=== PATIENT | female | born 1950 | race Hispanic/Latino ===

== ENCOUNTER → 2017-09-07 | Outpatient (CLI) | payer OTHER | END | disposition home or self-care (01) | LOC: RAH 10:15 | PROVIDERS: ATTEND Family Medicine | DX: Z12.31 Encounter for screening mammogram for malignant neoplasm of breast (principal) | CPT/HCPCS: 77067 ==

== ENCOUNTER → 2018-03-28 | Outpatient (CLI) | payer OTHER | END | disposition home or self-care (01) | LOC: OIH 15:22 | PROVIDERS: ATTEND Internal Medicine | DX: M13.871 Other specified arthritis, right ankle and foot (principal); M13.872 Other specified arthritis, left ankle and foot | CPT/HCPCS: 73630 ==

== ENCOUNTER → 2018-05-13 | Outpatient (CLI) | payer OTHER | END | disposition home or self-care (01) | LOC: RAH 08:24 | PROVIDERS: ATTEND Family Medicine | DX: I07.1 Rheumatic tricuspid insufficiency (principal); I47.9 Paroxysmal tachycardia, unspecified | CPT/HCPCS: 93306 ==

== ENCOUNTER → 2019-10-13 | Outpatient (CLI) | payer OTHER | END | disposition home or self-care (01) | LOC: RAH 14:46 | PROVIDERS: ATTEND Family Medicine | DX: Z12.31 Encounter for screening mammogram for malignant neoplasm of breast (principal) | CPT/HCPCS: 77067 ==

== ENCOUNTER → 2023-09-17 | Outpatient (CLI) | payer OTHER ==
[~2023-09-17] MED LIST: ATOR10 PO; BENZ-226 PO; CLOT10TR MM; LEFL20TA22 PO; NEBI5TAB11 PO; OSEL75 PO; SULF500T PO
== END | disposition home or self-care (01) ==
LOC: RAH 12:39
PROVIDERS: ATTEND Internal Medicine
DX: M81.8 Other osteoporosis without current pathological fracture (principal); Z78.0 Asymptomatic menopausal state
CPT/HCPCS: 77080